=== PATIENT | male | born 1950 | race Hispanic/Latino ===

== ENCOUNTER 2017-10-06 07:00 | Day surgery (SDC) | payer OTHER ==
[~2017-10-06] VITALS: Ht 170.2 cm; Wt 76.6 kg
[~2017-10-06 07:00] MED LIST: LOSA50TA37 PO; MULT-1192 PO; SODIUM CHLORIDE 0.9% 1000ML 1,000 ML IV ONE
[2017-10-06 07:59] VITALS: BP 186/80
[2017-10-06] MEDS ORDERED: PROPOFOL 1000 MG/100 ML 100 ML IV ONE (10:12)
[2017-10-06] MEDS ORDERED: SIMETHICONE 40 MG/0.6 ML ML ONE (10:17)
[2017-10-06 10:34] VITALS: BP 118/71
== END 2017-10-06 11:10 | disposition home or self-care (01) ==
LOC: ENDO 07:00 → DAH 07:00 → EDSEX 08:50 → ENDO 11:10
PROVIDERS: ATTEND Internal Medicine
DX: D12.3 Benign neoplasm of transverse colon (principal); D12.4 Benign neoplasm of descending colon; K62.1 Rectal polyp; K64.0 First degree hemorrhoids; D64.9 Anemia, unspecified; K57.30 Diverticulosis of large intestine without perforation or abscess without bleeding; I10 Essential (primary) hypertension; B19.20 Unspecified viral hepatitis C without hepatic coma; Z98.49 Cataract extraction status, unspecified eye; Z98.890 Other specified postprocedural states; Z82.49 Family history of ischemic heart disease and other diseases of the circulatory system; Z83.3 Family history of diabetes mellitus; Z80.9 Family history of malignant neoplasm, unspecified; Z79.899 Other long term (current) drug therapy; R00.1 Bradycardia, unspecified
CPT/HCPCS: 45380; 45385; 93005; A4606; J2704; J7030

== ENCOUNTER 2021-04-06 07:07 | Day surgery (SDC) | payer OTHER ==
[~2021-04-06] VITALS: Ht 170.2 cm; Wt 70.2 kg
[~2021-04-06 07:07] MED LIST changes: +0.9%NACL 1000ML 1,000 ML IV ONE; +LOSA100T58 PO; -LOSA50TA37 PO; -SODIUM CHLORIDE 0.9% 1000ML 1,000 ML IV ONE
[2021-04-06 07:30] VITALS: BP 161/84
[2021-04-06] MEDS ORDERED: PROPOFOL 10 MG/ML 20ML VIAL IV ONE (09:54)
[2021-04-06 10:25] VITALS: BP 105/55
[2021-04-06 10:30] VITALS: BP 75/46
[2021-04-06] MEDS ORDERED: IPRATROPIUM/ALBUTEROL SULFATE 3 ML SOLUTION IH ONE (10:33)
[2021-04-06 10:41] VITALS: BP 100/58
[2021-04-06 10:57] VITALS: BP 104/65
== END 2021-04-06 11:00 | disposition home or self-care (01) ==
LOC: ENDO 07:07 → DAH 07:07 → ENDO 11:00
PROVIDERS: ATTEND Internal Medicine Gastroenterology
DX: Z12.11 Encounter for screening for malignant neoplasm of colon (principal); K64.8 Other hemorrhoids; K31.89 Other diseases of stomach and duodenum; K20.90 Esophagitis, unspecified without bleeding; K44.9 Diaphragmatic hernia without obstruction or gangrene; K74.60 Unspecified cirrhosis of liver; R63.4 Abnormal weight loss; Z80.0 Family history of malignant neoplasm of digestive organs; B18.2 Chronic viral hepatitis C; I10 Essential (primary) hypertension; Z86.010 Personal history of colon polyps; Z79.899 Other long term (current) drug therapy; Z20.822 Contact with and (suspected) exposure to COVID-19
CPT/HCPCS: 43250; 45378; 87635; 93005; 94640; A4215 ×2; A4221; A4222; A4223; A4606; A4620; A4663; C9803; J2704; J7030